=== PATIENT | female | born 1985 | race American Indian/Alaskan Native ===

== ENCOUNTER 2017-07-01 12:30 | Inpatient (IN) | payer OTHER, MEDICAID ==
--- NOTE | 2017-07-01 15:49 | Ultrasound Report ---
LIMITED OB ULTRASOUND: Nonreactive NST Gestation: Post Position: Cephalic ECTOR = 12.6 cm Heart Rate: 160 BPM Estimated gestational age 30 weeks 4 days. BIOPHYSICAL PROFILE: 2 - breathing movements 2 - movements 2 - posture and tone 2 - Qualitative amniotic fluid volume 8 - TOTAL SCORE OF POSSIBLE 8 Heart Rate (bpm) 160
[2017-07-01] MEDS ORDERED: SUBLIMAZE IV PRN (18:53)
[2017-07-01] MEDS ORDERED: ZOFRAN IV PRN (18:53)
[2017-07-01] MEDS ORDERED: PHENERGAN PR PRN (18:53)
[2017-07-01] MEDS ORDERED: BRETHINE IVP PRN (18:53)
[2017-07-01] MEDS ORDERED: ePHEDrine SULFATE IV PRN ×2 (18:53→21:27)
[2017-07-01] MEDS ORDERED: STADOL IV PRN (18:53)
[2017-07-01] MEDS ORDERED: BRETHINE SUB-Q PRN (18:53)
[2017-07-01] MEDS ORDERED: MINERAL OIL PO PRN (18:53)
[2017-07-01] MEDS ORDERED: PITOCin/NS 20 UNIT/1000ML DRIP 20 UNITS/1,000 ML BAG IV SCH (19:00)
[2017-07-01] MEDS ORDERED: PITOCin/NS 30 UNIT/500ML 30 UNITS/500 ML BAG IV SCH ×2 (19:00)
[2017-07-01] MEDS ORDERED: XYLOCAINE 2% INFILTRATI ONE (19:07)
--- NOTE | 2017-07-01 19:11 | History and Physical Report ---
History of Present Illness Date of examination: 07/01/17 Date of admission: 07/01/17 Chief complaint: contractions History of present illness: 32 yo at 38 weeks came in triage c/o contractions and was admitted at 4cm. She is a [patient of [facility] since first trimester. Her course was unremarkable. reviewed record Past History Past Medical History: no pertinent history Past Surgical History: no surgical history [employer] History: abnormal PAP smear Family/Genetic History: hypertension, other Social history: no significant social history, single. denies: smoking, alcohol abuse - Obstetrical History Expected Date of Delivery: 07/11/17 Actual Gestation: 38 Week(s) 4 Day(s) : 2 Para: 1 Hx # Term Pregnancies: 1 Number of Pregnancies: 0 Spontaneous Abortions: 0 Induced : 0 Number of Living Children: 1 Medications and Allergies Allergies Allergy/AdvReac Type Severity Reaction Status Date / Time No Known Allergies Allergy Unverified 07/01/17 12:37 Home Medications Medication Instructions Recorded Confirmed Last Taken Type Pnv No.95/Ferrous Fum/Folic AC 1 tab PO DAILY 07/01/17 07/01/17 1 Day Ago History [ Vitamins Tablet] ~06/30/17 Active Meds: Active Medications Butorphanol Tartrate (Stadol) 2 mg IV Q2H PRN PRN Reason: Pain , Severe (7-10) Ephedrine Sulfate (Ephedrine Sulfate) 10 mg IV Q2M PRN PRN Reason: Hypotension Fentanyl (Sublimaze) 100 mcg IV Q2H PRN PRN Reason: Labor Pain Lactated Ringer's (Lactated Ringers) 1,000 mls @ 125 mls/hr IV DIRECT EVELYN Oxytocin/Sodium Chloride (Pitocin/Ns 20 Unit/1000ml Drip) 20 units in 1,000 mls @ 125 mls/hr IV DIRECT EVELYN Oxytocin/Sodium Chloride (Pitocin/Ns 30 Unit/500ml) 30 units in 500 mls @ 1 mls /hr IV TITR EVELYN; 1 MILLIUNITS/MIN PRN Reason: Protocol Oxytocin/Sodium Chloride (Pitocin/Ns 30 Unit/500ml) 30 units in 500 mls @ 0 mls /hr IV TITR EVELYN; As Directed PRN Reason: Protocol Lidocaine (Xylocaine 2%) 20 ml INFILTRATI ONCE ONE Stop: 07/01/17 18:54 Mineral Oil (Mineral Oil) 30 ml PO QHS PRN PRN Reason: Constipation Ondansetron HCl (Zofran) 4 mg IV Q8H PRN PRN Reason: Nausea And Vomiting Review of Systems All systems: negative Genitourinary: contractions - Vital Signs Vital signs: Vital Signs Pulse BP 81 134/79 07/01/17 13:15 07/01/17 13:15 Temp Pulse Resp BP Pulse Ox 75 17 125/75 07/01/17 18:03 07/01/17 16:29 07/01/17 18:03 - Physical Exam Breasts: Positive: normal Cardiovascular: Regular rate, Normal S1 Lungs: Negative: Clear to auscultation, Normal air movement Abdomen: Positive: soft, distention, tenderness. Negative: normal appearance, normal bowel sounds Genitourinary (Female): Positive: normal external genitalia, normal perenium Vulva: both: normal Vagina: Positive: normal moisture Uterus: Positive: normal size Adnexa: both: normal Anus/Rectum: Positive: normal perianal skin Extremities: Positive: normal Deep Tendon Reflex Grade: Normal +2 - Obstetrical FHR: category 1 Uterine Contraction Monitor Mode: Palpation Cervical Dilatation: 4 Cervical Effacement Percentage: 70 Uterine Contraction Pattern: Regular Uterine Tone Measurement Phase: Contraction Uterine Contraction Intensity: Moderate Results Result Diagrams: 07/01/17 19:45 All other labs normal. Assessment and Plan a/P HD#1 Active labor GBS neg Desires epidural labs and IVF expect vaginal delivery
[2017-07-01 20:02] LABS: Hematocrit 41.5 % (30.3-42.9); Hemoglobin 13.8 gm/dl (10.1-14.3); Mean Corpuscular HGB Conc 33 % (30-34); Mean Corpuscular Hemoglobin 31 pg (28-32); Mean Corpuscular Volume 94 fl (79-97); Platelet Count 151 K/mm3 (140-440); Red Blood Count 4.41 M/mm3 (3.65-5.03); White Blood Count 18.4 K/mm3 (4.5-11.0)
[2017-07-01] MEDS: LACTATED RINGERS 1,000 ML IV SCH ×2 (20:04→20:58)
[2017-07-01] MEDS ORDERED: NARCAN 2 MG/2 ML IV PRN (21:27)
--- NOTE | 2017-07-01 21:27 | Anesthesia Consultation ---
Anesthesia Consult and Med Hx Date of service: 07/01/17 - Airway Anesthetic Teeth Evaluation: Good ROM Head & Neck: Adequate Mental/Hyoid Distance: Adequate Mallampati Class: Class II Intubation Access Assessment: Probably Good - Pulmonary Exam CTA: Yes - Cardiac Exam Cardiac Exam: RRR - Pre-Operative Health Status ASA Pre-Surgery Classification: ASA2 Proposed Anesthetic Plan: Epidural - Pulmonary Hx Asthma: No - Cardiovascular System Hx Hypertension: No - Central Nervous System Hx Seizures: No Hx Psychiatric Problems: No - Endocrine Hx Renal Disease: No Hx Hypothyroidism: No Hx Hyperthyroidism: No - Hematic Hx Anemia: No Hx Sickle Cell Disease: No - Other Systems Hx Alcohol Use: No
[2017-07-01] MEDS ORDERED: fentaNYL-BUPIV 2 MCG/ML-0.125% 200 MCG/100 ML BAG EPIDURAL SCH (22:00)
--- NOTE | 2017-07-01 23:47 | Event Note ---
Date: 07/01/17 patient was noted to be 7/80/0 station and arom with meconium moderate in consistency, IUPC attempted byut cervix far in advance and FSE applied. will continue to watch closely strip.
--- NOTE | 2017-07-02 00:30 | Procedure Note ---
OB Delivery Note - Delivery Date of Delivery: 07/02/17 Surgeon: RIVER OCASIO Estimated blood loss: <100cc - Vaginal Delivery presentation: vertex Delivery position: OP Intrapartum events: meconium Delivery augmentation: rupture of membranes, pitocin Delivery monitor: external FHT, external uterine, internal FHT Route of delivery: Delivery placenta: spontaneous Delivery cord: 3 umbilical vessels Episiotomy: none Delivery laceration: none Anesthesia: epidural Delivery comments: Patient was noted to be c/c/ 0 and commneced to pushing at 0012 after 4 pushes delivered a viable male in OP presentation at 0016 weighing 6 pounds 1 oz Apgars 8 and 9. The head and shoulders delivered easily. Placenta delivered spontaneously intact with 3 vessel cord at 0018. EBL<100. No lacerations noted. Patient tolerated procedure well. Peds present for delivery. All sponge laps correcrt x2. - A at 1 minute: 8 at 5 minutes: 9 Infant Gender: Male
[2017-07-02] MEDS ORDERED: ZOFRAN IV PRN (02:22)
[2017-07-02] MEDS ORDERED: PHENERGAN PO PRN (02:22)
[2017-07-02] MEDS ORDERED: PHENERGAN PR PRN (02:22)
[2017-07-02] MEDS ORDERED: BENADRYL PO PRN (02:22)
[2017-07-02] MEDS ORDERED: TUCKS PAD TP PRN (02:22)
[2017-07-02] MEDS ORDERED: NORCO 5/325 PO PRN (02:22)
[2017-07-02] MEDS ORDERED: MILK OF MAGNESIA PO PRN (02:22)
[2017-07-02] MEDS ORDERED: TYLENOL PO PRN (02:22)
[2017-07-02] MEDS ORDERED: DULCOLAX PR PRN (02:22)
[2017-07-02] MEDS: SENOKOT S PO SCH ×2 (02:58→22:00)
[2017-07-02] MEDS ORDERED: SODIUM CHLORIDE FLUSH SYRINGE 10 ML IV PRN (03:00)
[2017-07-02] MEDS: MOTRIN PO SCH ×3 (03:00→17:51)
[2017-07-02] MEDS: PERCOCET 5/325 PO PRN (04:56)
--- NOTE | 2017-07-02 08:26 | Progress Note ---
Assessment and Plan - Patient Problems (1) Active labor at term Current Visit: Yes Status: Acute Plan to address problem: patient doing well discharge home tomorrow if no events Subjective - Subjective Date of service: 07/02/17 Interval history: Patient without complaints. Tolerating diet and pain controlled. Patient reports: appetite normal, voiding normally, pain well controlled Paulina: doing well Objective - Vital Signs Latest vital signs: Vital Signs Temp Pulse Resp BP BP Pulse Ox 07/02/17 01:35 82 132/68 07/02/17 01:05 91 H 126/72 07/02/17 00:34 94 H 98 07/02/17 00:32 71 81 L 07/02/17 00:28 94 H 98 07/02/17 00:23 90 98 07/02/17 00:18 88 97 07/02/17 00:15 121 H 89 07/02/17 00:13 84 100 07/02/17 00:08 100 H 100 07/02/17 00:06 88 130/77 07/02/17 00:03 87 100 07/01/17 23:58 92 H 100 07/01/17 23:53 77 100 07/01/17 23:50 86 07/01/17 23:48 89 100 07/01/17 23:43 89 99 07/01/17 23:38 82 98 07/01/17 23:35 89 131/70 07/01/17 23:33 90 99 07/01/17 23:28 80 100 07/01/17 23:23 82 100 07/01/17 23:18 91 H 99 07/01/17 23:13 85 99 07/01/17 23:08 83 100 07/01/17 23:05 90 126/63 07/01/17 23:03 86 98 07/01/17 22:58 92 H 98 07/01/17 22:53 90 98 07/01/17 22:48 89 98 07/01/17 22:43 74 98 07/01/17 22:38 78 99 07/01/17 22:37 81 82 L 07/01/17 22:36 94 H 114/61 07/01/17 22:33 98 H 98 07/01/17 22:28 78 97 07/01/17 22:23 92 H 98 07/01/17 22:18 94 H 98 07/01/17 22:13 88 98 07/01/17 22:08 82 98 07/01/17 22:05 90 126/70 07/01/17 22:03 80 98 07/01/17 21:58 90 99 07/01/17 21:53 86 98 07/01/17 21:48 103 H 99 07/01/17 21:43 96 H 99 07/01/17 21:38 87 99 07/01/17 21:33 86 99 07/01/17 21:28 67 133/74 99 07/01/17 21:25 73 129/60 07/01/17 21:24 99 H 91 07/01/17 21:23 82 127/56 97 07/01/17 21:21 86 120/68 07/01/17 21:19 87 150/70 93 07/01/17 21:18 89 98 07/01/17 21:17 88 121/63 07/01/17 21:13 84 07/01/17 21:12 84 07/01/17 20:21 80 95 07/01/17 20:16 89 98 07/01/17 20:11 94 H 97 07/01/17 20:08 74 94 07/01/17 20:06 135 H 91 07/01/17 20:03 82 92 07/01/17 20:01 97 H 98 07/01/17 19:56 109 H 99 07/01/17 19:51 107 H 99 07/01/17 19:49 80 82 L 07/01/17 19:46 88 97 07/01/17 19:15 98.5 F 85 16 117/64 97 07/01/17 18:03 75 125/75 07/01/17 16:44 86 120/56 07/01/17 16:29 86 17 120/56 07/01/17 14:30 95 H 141/91 07/01/17 14:16 87 153/83 07/01/17 14:01 81 134/82 07/01/17 13:45 88 122/85 07/01/17 13:32 83 122/81 07/01/17 13:15 81 134/79 Intake and Output 07/01/17 07/02/17 07/02/17 22:59 06:59 14:59 Intake Total 115.4 Output Total 400 Balance 115.4 -400 Intake: IV 115.4 Lactated Ringers 1,000 ml 112.5 @ 125 mls/hr IV DIRECT EVELYN Rx#:[id number] PITOCin/NS 30 UNIT/500ML 2.9 30 units In 500 ml @ 1 MILLIUNITS/MIN 1 mls/hr IV TITR [facility] Rx#:[id number] Output: Urine 400 Indwelling Catheter 400 Other: Total, Output Amount 200 Estimated Blood Loss 100 - Exam Uterus: Present: normal, firm - Labs Labs: Abnormal lab results 07/01/17 Range/Units 19:45 WBC 18.4 H (4.5-11.0) K/mm3
--- NOTE | 2017-07-02 08:27 | Discharge Summary ---
Providers - Providers Date of Admission: 07/01/17 19:03 Date of discharge: 07/03/17 Attending physician: RIVER OCASIO MD Primary care physician: RIVER OCASIO MD Hospitalization Reason for admission: active labor Delivery: Discharge diagnosis: IUP at term delivered [place] baby: male Pertinent studies: Admitted in active labor with advanced cervical dilation. Had a . uncomplicated Condition at discharge: Good Disposition: DC-01 TO HOME OR SELFCARE - Discharge Diagnoses (1) Active labor at term Status: Acute Plan - Discharge Medications Prescriptions: HYDROcodone/APAP 5-325 [[place] 5/325] 1 each PO Q6HR PRN #30 tablet PRN Reason: Pain Ibuprofen [Motrin] 800 mg PO Q8HR PRN #60 tablet PRN Reason: Pain - Provider Discharge Summary Activity: no sex for 6 weeks, no heavy lifting 4 weeks, no strenuous exercise Diet: routine Instructions: routine Additional instructions: [] Smoking cessation referral if applicable(refer to patient education folder for contact #) [] Refer to [facility]'s [facility] Booklet Call your doctor immediately for: * Fever > 100.5 * Heavy vaginal bleeding ( >1 pad per hour) * Severe persistent headache * Shortness of breath * Reddened, hot, painful area to leg or breast * followup in 4 weeks for visit - Follow up plan
[2017-07-02] MEDS: PRENATAL VITAMIN PO SCH (12:21)
[2017-07-02] MEDS: COLACE PO SCH ×2 (12:21→22:00)
[2017-07-03] MEDS: COLACE PO SCH ×2 (01:55→10:54)
[2017-07-03] MEDS: SENOKOT S PO SCH (01:55)
[2017-07-03] MEDS: PERCOCET 5/325 PO PRN (01:56)
[2017-07-03] MEDS: MOTRIN PO SCH ×4 (01:56→12:19)
[2017-07-03] MEDS ORDERED: M-M-R II VACCINE SUB-Q ONE (02:22)
[2017-07-03] MEDS ORDERED: BOOSTRIX IM ONE (06:00)
[2017-07-03] MEDS: PRENATAL VITAMIN PO SCH (10:54)
[2017-07-03 18:27] VITALS: BP 122/72
== END 2017-07-03 16:15 | disposition home or self-care (01) | DRG 775 ==
LOC: TRG 12:30 → LD 19:03 → OB 07-02 02:17
PROVIDERS: ADMIT Obstetrics & Gynecology; ATTEND Obstetrics & Gynecology
PROC: 10E0XZZ Delivery of Products of Conception, External Approach (ICD-10-PCS; principal; 2017-07-02)
PROC: 3E0R3BZ Introduction of Anesthetic Agent into Spinal Canal, Percutaneous Approach (ICD-10-PCS; 2017-07-02)
PROC: 00HU33Z Insertion of Infusion Device into Spinal Canal, Percutaneous Approach (ICD-10-PCS; 2017-07-02)
DX: O77.0 Labor and delivery complicated by meconium in amniotic fluid (principal); Z3A.38 38 weeks gestation of pregnancy; Z37.0 Single live birth; Z82.49 Family history of ischemic heart disease and other diseases of the circulatory system; Z79.899 Other long term (current) drug therapy
CPT/HCPCS: 36415; 76815; 76819; 85014; 85018; 85027; 86592; 86850; 86900; 86901; 88307; J2590; J3010; J7120